=== PATIENT | male | born 1995 | race Hispanic/Latino ===

== ENCOUNTER 2021-04-29 16:03 | Emergency (ER) | payer OTHER ==
[~2021-04-29] VITALS: Ht 157.5 cm; Wt 58.7 kg
[2021-04-29] MEDS ORDERED: KEFLEX125 MG/5 M PO (16:48)
== END 2021-04-29 17:10 | disposition home or self-care (01) ==
LOC: FSED 16:47
DX: S11.81XA Laceration without foreign body of other specified part of neck, initial encounter (principal); X99.1XXA Assault by knife, initial encounter; Y92.89 Other specified places as the place of occurrence of the external cause
CPT/HCPCS: 99283

== ENCOUNTER 2021-05-07 14:58 | Emergency (ER) | payer SELFPAY ==
[~2021-05-07] VITALS: Ht 157.5 cm; Wt 79.4 kg
[~2021-05-07 14:58] MED LIST: KEFLEX125 MG/5 M PO
== END 2021-05-07 17:02 | disposition home or self-care (01) ==
LOC: FSED 16:20
DX: Z48.02 Encounter for removal of sutures (principal)
CPT/HCPCS: 99282; S0630